=== PATIENT | male | born 1975 | race Caucasian/White ===

== ENCOUNTER 2020-11-13 13:11 | Emergency (ER) | payer OTHER ==
[~2020-11-13] VITALS: Ht 167.6 cm; Wt 81.2 kg
[2020-11-13 13:20] VITALS: BP 131/77
[2020-11-13] MEDS ORDERED: LIDO1ADH47 TP (15:59)
[2020-11-13] MEDS ORDERED: NAPR-54 PO (15:59)
[2020-11-13] MEDS ORDERED: KETOROLAC 30 MG/ML VIAL IM ONE (16:00)
--- NOTE | 2020-11-13 16:20 | NUR ---
Patient discharged with v/s stable. Written and verbal after care instructions given and explained. Patient alert, oriented and verbalized understanding of instructions. Ambulatory with steady gait. All questions addressed prior to discharge. ID band removed. Patient advised to follow up with PMD. Rx of lidocaine and Naproxen given. Patient educated on indication of medication including possible reaction and side effects. Opportunity to ask questions provided and answered.
== END 2020-11-13 16:20 | disposition home or self-care (01) ==
LOC: MED 13:11
DX: S20.20XA Contusion of thorax, unspecified, initial encounter (principal); Z79.899 Other long term (current) drug therapy; W19.XXXA Unspecified fall, initial encounter; Y93.89 Activity, other specified; Y92.89 Other specified places as the place of occurrence of the external cause; Y99.8 Other external cause status
CPT/HCPCS: 71101; 96372; 99283; J1885

== ENCOUNTER 2021-05-26 15:23 | Emergency (ER) | payer OTHER ==
[~2021-05-26] VITALS: Ht 167.6 cm; Wt 86.6 kg
[~2021-05-26 15:23] MED LIST: LIDO1ADH47 TP; NAPR-54 PO
[2021-05-26 15:27] VITALS: BP_SYST 171; BP_SYST 196; BP_DIAS 114; BP_DIAS 121
--- NOTE | 2021-05-26 15:30 | NUR ---
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 CLAMPED ON NO ACTIVE BLEEDING NOTED.
--- NOTE | 2021-05-26 16:45 | NUR ---
Patient discharged with v/s stable. Written and verbal after care instructions given and explained. Patient verbalized understanding. Ambulatory with steady gait. All questions addressed prior to discharge. Advised to follow up with PMD.
[2021-05-26 16:47] VITALS: BP 134/70
== END 2021-05-26 16:45 | disposition home or self-care (01) ==
LOC: MED 15:23
DX: R04.0 Epistaxis (principal); I10 Essential (primary) hypertension; Z79.1 Long term (current) use of non-steroidal anti-inflammatories (NSAID); Z79.899 Other long term (current) drug therapy
CPT/HCPCS: 99282

== ENCOUNTER 2021-08-18 21:24 | Emergency (ER) | payer OTHER ==
[~2021-08-18] VITALS: Ht 180.3 cm; Wt 83.9 kg
[2021-08-18 22:14] VITALS: BP 142/99
[2021-08-19] MEDS ORDERED: ACETAMINOPHEN EXTRA STRENGTH 500 MG TAB PO ONE
[2021-08-19] MEDS ORDERED: NACL 0.9% 1,000 ML IV ONE
[2021-08-19] MEDS ORDERED: IBUPROFEN 800 MG TAB PO ONE
[2021-08-19] MEDS ORDERED: ONDANSETRON 4 MG/2 ML VIAL IVP ONE
[2021-08-19 00:45] LABS: HEMATOCRIT 46.6 % (36-52); HEMOGLOBIN 15.5 g/dL (12.0-18.0); MEAN CORPUSCULAR HEMOGLOBIN 26 pg (27-31); MEAN CORPUSCULAR HGB CONC 33 g/dL (33-37); MEAN CORPUSCULAR VOLUME 79.2 fL (80-94); PLATELET COUNT (AUTO) 208 K/uL (140-450); RED BLOOD CELL COUNT(AUTO) 5.88 MIL/uL (4.20-6.10); WHITE BLOOD COUNT (AUTO) 20.7 K/uL (4.8-10.8)
[2021-08-19 00:50] LABS: ALBUMIN 3.7 g/dL (3.4-5.0); ANION GAP 17.8 (8-16); CARBON DIOXIDE 23.6 mmol/L (21-32); CREATININE 1.1 mg/dL (0.6-1.3); POTASSIUM 3.4 mmol/L (3.5-5.1); TOTAL BILIRUBIN 0.7 mg/dL (0.0-1.0)
[2021-08-19 01:07] LABS: LYMPHOCYTES % (MANUAL) 1 % (20-46); MONOCYTES % (MANUAL) 4 % (5-12)
--- NOTE | 2021-08-19 02:00 | NUR ---
pt taken to er bed 11
[2021-08-19] MEDS ORDERED: ACETAMINOPHEN EXTRA STRENGTH 500 MG TAB ONE (02:10)
[2021-08-19] MEDS ORDERED: ONDANSETRON 4 MG TAB ONE (02:10)
[2021-08-19] MEDS ORDERED: IBUPROFEN 800 MG TAB ONE (02:10)
[2021-08-19] MEDS ORDERED: ONDANSETRON 4 MG/2 ML VIAL ONE (02:14)
--- NOTE | 2021-08-19 02:22 | NUR ---
46 Y/O MALE BIBS FROM HOME, C/O FLU SYMPTOMS X1 DAY. PT STATES HE HAS BODYACHES, FEVER, CHILLS, AND N/V/D. DENIES SOB, CP, OR COUGH. PT TOOK TYLENOL W/ NO RELIEF. PT REPORTS 10/10 BODY ACHES. UNLABORED BREATHING. PT IS SEATED IN BED WITH HOB RAISED, BED IN LOWEST POSITION, AND RAIL UP X1. HX: HTN NKA
--- NOTE | 2021-08-19 02:57 | NUR ---
XRAY AT BEDSIDE
--- NOTE | 2021-08-19 03:13 | NUR ---
COVID/CAMI AND FLU SWABS COLLECTED AND WALKED TO LAB
[2021-08-19] MEDS ORDERED: ONDA-188 SL (03:45)
[2021-08-19 04:31] VITALS: BP 135/99
--- NOTE | 2021-08-19 04:32 | NUR ---
Patient discharged with v/s stable. Written and verbal after care instructions given and explained. Patient alert, oriented and verbalized understanding of instructions. Ambulatory with steady gait. All questions addressed prior to discharge. ID band removed. Patient advised to follow up with PMD. Rx of ZOFRAN given. Patient educated on indication of medication including possible reaction and side effects. Opportunity to ask questions provided and answered. VSS, A/OX4, AMBULATORY, UNLABORED BREATHING, AND CALM DEMEANOR.
== END 2021-08-19 04:28 | disposition home or self-care (01) ==
LOC: MED 21:24
DX: R11.2 Nausea with vomiting, unspecified (principal); Z20.822 Contact with and (suspected) exposure to COVID-19; M79.18 Myalgia, other site; R19.7 Diarrhea, unspecified; R68.83 Chills (without fever); R51.9 Headache, unspecified; I10 Essential (primary) hypertension; Z79.899 Other long term (current) drug therapy; Z79.1 Long term (current) use of non-steroidal anti-inflammatories (NSAID)
CPT/HCPCS: 36415; 71045; 80053; 81002; 85025; 87426; 87804; 96361; 96374; 99284; J2405; Q0092; J7030; Q0162